=== PATIENT | female | born 1975 | race Caucasian/White ===

== ENCOUNTER → 2017-07-09 | Outpatient (CLI) | payer OTHER | LOC: FIMAGING 09:34 | PROVIDERS: ATTEND Internal Medicine | DX: Z12.31 Encounter for screening mammogram for malignant neoplasm of breast (principal) | CPT/HCPCS: G0202 ==

== ENCOUNTER → 2017-08-07 | Outpatient (CLI) | payer OTHER ==
[~2017-08-07] MED LIST: FUROSEMIDE 40 MG/4 ML VIAL ONE
== END ==
LOC: FIMAGING 12:55
PROVIDERS: ATTEND Urology
DX: R10.9 Unspecified abdominal pain (principal)
CPT/HCPCS: A9562; J1940

== ENCOUNTER → 2017-08-11 | Outpatient (CLI) | payer OTHER | LOC: BMCIMAGING 15:18 | PROVIDERS: ATTEND Urology | DX: N20.0 Calculus of kidney (principal) ==

== ENCOUNTER 2017-08-21 22:41 | Emergency (ER) | payer OTHER ==
[2017-08-21] MEDS ORDERED: fentaNYL 100 MCG/2 ML INJ IVP ONE (22:54)
[2017-08-21] MEDS ORDERED: NS 1,000 ML IV ONE (22:54)
[2017-08-21] MEDS ORDERED: ONDANSETRON 4 MG/2 ML VIAL IVP ONE (22:58)
[2017-08-21 23:03] LABS: COLOR YELLOW; LEUKOCYTE ESTERASE,URINE TRACE (NEGATIVE); NITRITE,URINE POSITIVE (NEGATIVE); PH,URINE 5.5 (5.0-7.5)
[2017-08-21 23:05] LABS: % IMMATURE GRANULYOCYTES 0.6 % (0.0-1.1); ABSOLUTE IMMATURE GRANULOCYTES 0.06 10^3/uL (0.00-0.10); ADD DIFF? NO; ADD MORPH? NO; ADD SCAN? NO; ATYPICAL LYMPHOCYTE FLAG 0 (0-99); FRAGMENT RBC FLAG 0 (0-99); HEMATOCRIT 41.1 % (38.0-47.0); HEMOGLOBIN 14.4 g/dL (12.6-16.3); LEFT SHIFT FLG 0 (0-99); LIPEMIA HEMOLYSIS FLAG 90 (0-99); MEAN CELL HEMOGLOBIN 30.2 pg (27.9-34.1); MEAN CELL VOLUME 86.2 fL (81.5-99.8); MEAN PLATELET VOLUME 10.6 fL (8.7-11.7); PLATELET CLUMPS FLAG 0 (0-99); PLATELET COUNT 260 10^3/uL (150-400); RED BLOOD CELL COUNT 4.77 10^6/uL (4.18-5.33); RED CELL DISTRIBUTION WIDTH 11.9 % (11.5-15.2)
[2017-08-21] MEDS ORDERED: KETOROLAC 30 MG/1 ML SDV IVP ONE (23:10)
[2017-08-21 23:12] LABS: ANION GAP 15 mEq/L (8-16); CALCIUM 9.3 mg/dL (8.5-10.4); CARBON DIOXIDE 20 mEq/l (22-31); CHLORIDE 104 mEq/L (97-110); CREATININE 0.6 mg/dL (0.6-1.0); GLOMERULAR FILTRATION RATE > 60; GLUCOSE 121 mg/dL (70-100); POTASSIUM 4.5 mEq/L (3.5-5.2); SODIUM 139 mEq/L (134-144)
[2017-08-21 23:13] LABS: BACTERIA 2+ /hpf (NONE SEEN); MUCUS 2+ /lpf (NONE-1+); RBC,URINE 25-50 /hpf (0-3)
[2017-08-21] MEDS ORDERED: HYDROmorphONE/DILAUDID 1 MG/ML INJ ONE (23:35)
--- NOTE | 2017-08-21 23:35 | EDPHY ---
H & P Stated Complaint: severe 06/17 suprapubic/R flank pain s/p removal of stent today at 1330. Time Seen by Provider: 08/21/17 23:04 HPI/ROS: CHIEF COMPLAINT: Right flank pain History by patient HISTORY OF PRESENT ILLNESS: 41-year-old woman with a history of right kidney stone that was treated with a stent and laser lithotripsy presents to emergency department tonight with severe flank pain approximately 12 hr after her stent was removed today. Patient states that she had the stent removal procedure and was given a single dose of antibiotics and was doing fine although she was having some pain. Over the course of the evening she developed gradually worsening right flank pain and nausea and vomiting. She took 2 Yelm without relief. A few hours later she took 2 more but still had no relief prompting her to seek medical attention. Patient states she has been using very little Yelm over the course of the week that the stent was in but has been having significant pain all week. She also complains of feeling bloated. She has been having persistent hematuria which is unchanged. She denies any fever chills. She has not taken any ibuprofen. She has been able to eat today. She had a few crackers shortly after taking the pain medicine which did not seem to make her symptoms any worse. REVIEW OF SYSTEMS: As in HPI, and all other systems reviewed and are negative Source: Patient - Personal History LMP (Females 10-55): 15-21 Days Ago Current Tetanus Diphtheria and Acellular Pertussis (TDAP): Yes - Medical/Surgical History Hx Asthma: No Hx Chronic Respiratory Disease: No Hx Diabetes: No Hx Cardiac Disease: No Hx Renal Disease: No Hx Cirrhosis: No Hx Alcoholism: No Hx HIV/AIDS: No Hx Splenectomy or Spleen Trauma: No Other PMH: ORIF RT HAND, PLATE AND PINS 1999, KIDNEY STONES W. STENT 2012, 2016 - Social History Smoking Status: Never smoked - Physical Exam Exam: General Appearance: Alert, uncomfortable appearing. Head: normocephalic, atraumatic Eyes: Pupils equal and round, reactive to light, no pallor or injection. Mouth: Mucous membranes moist. Respiratory: Normal, effort, lungs are clear to auscultation. No wheezes, rales or rhonchi. Cardiovascular: Regular rate and rhythm. S1, S2, no murmurs, gallops or rubs appreciated Gastrointestinal: Abdomen is soft and mildly diffusely tender on the right side , no Reagan sign, no McBurney's point tenderness, no masses, bowel sounds decreased. Back: Positive right CVA tenderness, no bony tenderness Neurological: Awake, alert and oriented x 3, no pronator drift, normal gait, no pronator drift Skin: Warm and dry, no rashes. Musculoskeletal: No deformities or tenderness. Extremities: full range of motion, no edema, DP2+ bilat Psychiatric: Patient has normal affect, there is no agitation. Constitutional: Initial Vital Signs Temperature (C) 36.5 C 08/21/17 22:55 Heart Rate 123 H 08/21/17 22:55 Respiratory Rate 22 H 08/21/17 22:55 Blood Pressure 135/110 H 08/21/17 22:55 O2 Sat (%) 93 08/21/17 22:55 O2 Delivery Mode Room Air Allergies/Adverse Reactions: sulfamethoxazole [From Bactrim] Allergy (Verified 08/21/17 22:54) trimethoprim [From Bactrim] Allergy (Verified 08/21/17 22:54) Home Medications: Medication Instructions Recorded Hydrocodone/APAP 5/325 [Yelm 08/21/17 5/325 (*)] Phenazopyridine HCl [Pyridium] 08/21/17 Tamsulosin HCl [Flomax 0.4 MG (*)] 08/21/17 Medical Decision Making ED Course/Re-evaluation: 40-year-old woman who is status post ureteral stent removal earlier today presents with severe pain. Patient was given IV fentanyl, Zofran and fluids prior to my evaluation. She did get some relief with this. She was subsequently given IV ketorolac and is feeling much better. She had complained of increased pain again around 11:30 p.m. after which she was given a mg of Dilaudid. On re-evaluation she was significantly improved. Once her pain was under control, The patient did wish to go home. Patient has been afebrile. She has no elevated white blood cell count. Her BUN creatinine are within normal limits. Her urine has red cells, white cells and bacteria however given that she just had a stent removal this is ambiguous for infection. I discussed the case with Dr. Sarkar, the urologist taking care of her. Given that the patient has no active signs of infection we agree to wait on urine culture results before starting any antibiotics at this time. She will re-evaluate the patient in the morning. I discussed this plan with the patient and her understand and are agreeable. Patient did complain of some recurrent nauseated prior to discharge which she was given additional dose of Zofran. We discussed pain management home with ibuprofen and Yelm and the patient has been given a prepack of Zofran as some of her nausea and vomiting may have been related to her Yelm. She understands that she is to call Dr. Sarkar the morning regardless of how she is feeling. - Data Points Laboratory Results: Laboratory Results 08/21/17 22:54 08/21/17 22:54 08/21/17 08/21/17 08/21/17 22:54 22:54 22:54 WBC 9.30 10^3/uL 10^3/uL (3.80-9.50) RBC 4.77 10^6/uL 10^6/uL (4.18-5.33) Hgb 14.4 g/dL g/dL (12.6-16.3) Hct 41.1 % % (38.0-47.0) MCV 86.2 fL fL (81.5-99.8) MCH 30.2 pg pg (27.9-34.1) MCHC 35.0 g/dL g/dL (32.4-36.7) RDW 11.9 % % (11.5-15.2) Plt Count 260 10^3/uL 10^3/uL (150-400) MPV 10.6 fL fL (8.7-11.7) Neut % (Auto) 72.8 % % (39.3-74.2) Lymph % (Auto) 17.4 % % (15.0-45.0) [place] % (Auto) 8.0 % % (4.5-13.0) Eos % (Auto) 1.0 % % (0.6-7.6) Baso % (Auto) 0.2 % L % (0.3-1.7) Nucleat RBC Rel Count 0.0 % % (0.0-0.2) Absolute Neuts (auto) 6.77 10^3/uL H 10^3/uL (1.70-6.50) Absolute Lymphs (auto) 1.62 10^3/uL 10^3/uL (1.00-3.00) Absolute Monos (auto) 0.74 10^3/uL 10^3/uL (0.30-0.80) Absolute Eos (auto) 0.09 10^3/uL 10^3/uL (0.03-0.40) Absolute Basos (auto) 0.02 10^3/uL 10^3/uL (0.02-0.10) Absolute Nucleated RBC 0.00 10^3/uL 10^3/uL (0-0.01) Immature Gran % 0.6 % % (0.0-1.1) Immature Gran # 0.06 10^3/uL 10^3/uL (0.00-0.10) Sodium 139 mEq/L mEq/L (134-144) Potassium 4.5 mEq/L mEq/L (3.5-5.2) Chloride 104 mEq/L mEq/L (97-110) Carbon Dioxide 20 mEq/l L mEq/l (22-31) Anion Gap 15 mEq/L mEq/L (8-16) BUN 13 mg/dL mg/dL (7-23) Creatinine 0.6 mg/dL mg/dL (0.6-1.0) Estimated GFR > 60 Glucose 121 mg/dL H mg/dL (70-100) Calcium 9.3 mg/dL mg/dL (8.5-10.4) Urine Color YELLOW Urine Appearance CLEAR Urine pH 5.5 (5.0-7.5) Ur Specific [place] 1.020 (1.002-1.030) Urine Protein 2+ H (NEGATIVE) Urine Ketones NEGATIVE (NEGATIVE) Urine Blood 3+ H (NEGATIVE) Urine Nitrate POSITIVE H (NEGATIVE) Urine Bilirubin NEGATIVE (NEGATIVE) Urine Urobilinogen 0.2 EU EU (0.2-1.0) Ur Leukocyte Esterase TRACE H (NEGATIVE) Urine RBC 25-50 /hpf H /hpf (0-3) Urine WBC 3-5 /hpf H /hpf (0-3) Ur Epithelial Cells 2+ /lpf H /lpf (NONE-1+) Urine Bacteria 2+ /hpf H /hpf (NONE SEEN) Urine Mucus 2+ /lpf H /lpf (NONE-1+) Urine Glucose NEGATIVE (NEGATIVE) Medications Given: Discontinued Medications Fentanyl (Sublimaze) 75 mcg IVP EDNOW ONE Stop: 08/21/17 22:55 Last Admin: 08/21/17 23:03 Dose: 75 mcg Hydromorphone HCl (Dilaudid) 1 mg IVP EDNOW ONE Stop: 08/21/17 23:41 Last Admin: 08/21/17 23:43 Dose: 1 mg Sodium Chloride (Ns) 1,000 mls @ 0 mls/hr IV EDNOW ONE; Wide Open PRN Reason: Protocol Stop: 08/21/17 22:55 Last Admin: 08/21/17 23:04 Dose: 1,000 mls Ketorolac Tromethamine (Toradol) 15 mg IVP EDNOW ONE Stop: 08/21/17 23:11 Last Admin: 08/21/17 23:14 Dose: 15 mg Ondansetron HCl (Zofran) 4 mg IVP EDNOW ONE Stop: 08/21/17 22:59 Last Admin: 08/21/17 23:03 Dose: 4 mg Departure - Departure Disposition: Home, Routine, Self-Care Clinical Impression: Renal colic on right side Condition: Good Instructions: Renal Colic (ED) Additional Instructions: You were seen by Dr. Rose Nicole today. Please call Dr. Sarkar tomorrow morning to arrange further follow-up. Take Zofran as needed for nausea vomiting. Take ibuprofen 600 mg 4 times daily for pain with Yelm as needed on top of that. Return for any worsening, pain out of control, fever or new concerns. Referrals: Marisabel Diez MD [Primary Care Provider] - As per Instructions Teresa Sarkar MD [Medical Doctor] - As per Instructions
[2017-08-21] MEDS ORDERED: HYDROmorphONE/DILAUDID 1 MG/ML INJ IVP ONE (23:40)
[2017-08-22] MEDS ORDERED: ONDANSETRON 4 MG/2 ML VIAL IVP ONE (00:08)
[2017-08-22] MEDS ORDERED: ONDANSETRON 4MG PREPACK#2 BTL TAKEHOME ONE (00:09)
[2017-08-22 00:11] VITALS: BP 137/86; PULSE 76; RESP 14; TEMP 97.9; O2SAT 93
== END 2017-08-22 00:32 | disposition home or self-care (01) ==
LOC: CED 22:41
DX: N23 Unspecified renal colic (principal); E86.9 Volume depletion, unspecified
CPT/HCPCS: 80048-PO; 81003-PO; 81015-PO; 85025-PO; 96374; J1170; J1885; J2405; J3010

== ENCOUNTER → 2017-09-19 | Outpatient (CLI) | payer OTHER | LOC: CIMAGING 09:01 | PROVIDERS: ATTEND Urology | DX: R94.02 Abnormal brain scan (principal); R20.2 Paresthesia of skin | CPT/HCPCS: 76770-PO ==

== ENCOUNTER → 2018-06-30 | Outpatient (CLI) | payer OTHER | LOC: FIMAGING 12:08 | PROVIDERS: ATTEND Internal Medicine | DX: Z12.31 Encounter for screening mammogram for malignant neoplasm of breast (principal) ==

== ENCOUNTER → 2018-11-13 | Outpatient (CLI) | payer OTHER | LOC: CIMAGING 12:33 | PROVIDERS: ATTEND Urology | DX: N28.89 Other specified disorders of kidney and ureter (principal) | CPT/HCPCS: 76770-PO ==